=== PATIENT | male | born 1955 ===

== ENCOUNTER → 2021-01-21 11:03 | Outpatient (CLI) | payer MEDICARE, OTHER, SELFPAY ==
--- NOTE | 2021-01-21 | DI.US.S_ITS ---
PROCEDURE: US ABD AORTA ANEURYSM SCREEN INDICATIONS: HISTORY OF NICOTINE DEPENDENCE TECHNIQUE: Real time scanning was performed of the aorta and iliac arteries, with image documentation. COMPARISON: None. FINDINGS: Aorta: Proximal aortic diameter measures 2.7 cm. Mid-aorta measures 2.1 cm. Distal aortic diameter is 2 cm. Iliac arteries: Right common iliac artery measures 1.3 cm. Left common iliac artery measures 1.2 cm. IMPRESSION: Negative for aneurysm. Dictated by: Prieto Gil M.D. on 01/21/2021 at 12:27 Approved by: Prieto Gil M.D. on 01/21/2021 at 12:28
[2021-01-21 12:08] LABS: Add Manual Diff / Slide Review NO; Basophils Absolute Auto 100 /uL (0-100); Basophils Percent Auto 0.8 % (0-2); Eosinophils Absolute Auto 300 /uL (0-450); Eosinophils Percent Auto 4.2 % (2-4); Hematocrit 43.1 % (41-53); Hemoglobin 14.5 g/dL (13.5-17.5); Lymphocytes Absolute Auto 1700 /uL (1100-4500); Mean Corpuscular HGB Conc 33.7 % (30-36); Mean Corpuscular Hemoglobin 30.4 PG (26-34); Mean Corpuscular Volume 90.1 fL (80-100); Monocytes Absolute Auto 500 /uL (0-900); Monocytes Percent Auto 5.9 % (3-14); Neutrophils Absolute Auto 5200 /uL (1500-7000); Neutrophils Percent Auto 67.1 % (50-75); Platelet Count 172 X10^3/uL (150-400); Red Blood Cell Count 4.78 X10^6/uL (4.5-5.9); Red Cell Distribution Width 14.1 % (11.6-14.8); White Blood Cell Count 7.7 X10^3/uL (4.5-11.0)
[2021-01-21 12:17] LABS: Alanine Aminotransferase 28 IU/L (<50); Albumin 4.3 g/dL (3.5-5.0); Albumin Globulin Ratio 1.7 (1.0-2.8); Alkaline Phosphatase 68 U/L (38-126); Aspartate Aminotransferase 35 IU/L (17-59); BUN Creatinine Ratio 22.1 (6-22); Bilirubin Total 0.6 mg/dL (0.2-1.3); Blood Urea Nitrogen 17 mg/dL (9-20); Calcium 9.5 mg/dL (8.4-10.2); Carbon Dioxide 30 mmol/L (22-32); Chloride 104 mmol/L (98-107); Cholesterol 176 mg/dL (140-199); Estimated Glomerular Filt Rate > 60.0 mL/min (>60); Globulin 2.6 g/dL (1.7-4.1); Glucose 103 mg/dL (80-110); HDL Cholesterol 48 mg/dL (40-60); HEMOLYSIS < 15 (0-50); LDL Cholesterol Calculated 102 mg/dL (<100); Potassium 4.5 mmol/L (3.4-5.1); Sodium 141 mmol/L (137-145); Total Protein 6.9 g/dL (6.3-8.2); Triglycerides 131 mg/dL (35-150)
[2021-01-21 12:47] LABS: Prostate Specific Antigen Scrn 5.18 ng/mL (0.1-4.0)
== END ==
PROVIDERS: Referring Provider Family Medicine; Visit Provider Family Medicine
DX: Z13.0 Encounter for screening for diseases of the blood and blood-forming organs and certain disorders involving the immune mechanism (principal); Z13.6 Encounter for screening for cardiovascular disorders; Z13.220 Encounter for screening for lipoid disorders; Z87.891 Personal history of nicotine dependence; Z12.5 Encounter for screening for malignant neoplasm of prostate
CPT/HCPCS: 36415; 76706; 80053; 80061; 85025; G0103

== ENCOUNTER → 2021-05-06 13:40 | Outpatient (CLI) | payer MEDICARE, OTHER, SELFPAY ==
[2021-05-06 14:17] LABS: COVID19 -Nasal RAPID Negative (Negative)
== END ==
PROVIDERS: Visit Provider Family Medicine Sleep Medicine
DX: Z20.822 Contact with and (suspected) exposure to COVID-19 (principal)
CPT/HCPCS: 87635; C9803

== ENCOUNTER 2021-05-07 12:39 | Day surgery (SDC) | payer MEDICARE, OTHER, SELFPAY ==
--- NOTE | 2021-05-07 | PATH_ITS ---
[facility] Accession Number: [id number] . 01 Material submitted: . PART A: colon - SIGMOID COLON POLYP 8MM PART B: colon - SIGMOID COLON POLYP 1 CM . 02 Diagnosis: A. Sigmoid Colon Polyp 8 mm: Tubular adenoma. . B. Sigmoid Colon Polyp 1 cm: Tubular adenoma. MRV 05/11/2021 1424 Local . 02 Electronically signed: . Rachel Rolon MD, Pathologist NPI- [id number] . 01 Gross description: . Part A: SIGMOID COLON POLYP 8MM: Received in formalin is 1 fragment(s) of santiago, soft tissue measuring 0.4 x 0.3 x 0.2 cm submitted entirely in 1 cassette(s) Part B: SIGMOID COLON POLYP 1 CM: Received in formalin is 1 fragment(s) of santiago, soft tissue measuring 1.4 x 0.3 x 0.3 cm submitted entirely in 1 cassette(s) /[facility] 05/10/2021 1647 Local . 02 Pathologist provided ICD-10: Z12.11, K63.5 . 02 CPT . 616960, [id number] Specimen Comment: A courtesy copy of this report has been sent to [phone] Performed at: 01 [facility] [address] [facility], [place], [place] [id number] MD Christiano Aguilar MD Phone: [phone] Performed at: 02 [facility] [address] [place], [place] [id number] MD Eleanor Mccarthy MD Phone: [phone]
--- NOTE | 2021-05-07 12:19 | PM.HP.1 ---
History of Present Illness History of Present Illness Date Patient Seen: 05/07/21 Chief complaint: SDC Narrative: 65 year old male comes in today for consideration of a screening colonoscopy. One previous sigmoidoscopy and 1 previous colonoscopy, denies polyps. There have been no lower GI symptoms suggesting disease such as change in bowel habits, bleeding, abdominal pain or anemia. There's been no family history of colon cancer or colon polyps. Overall health issues have been stable, including no major cardiac events for at least 6 weeks. PCP: Dr. Thomas Past medical history: Obstructive sleep apnea BPH Trigger finger Arthritis Carpal tunnel syndrome History of tobacco use , quit 1987 Past surgical history: Knee arthroscopy, left Hernia repair Lipoma removal Bilateral rotator cuff repair Colonoscopy x1 Sigmoidoscopy x1 Family history: Noncontributory Social history: . 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 Lives on [place]. Recreational marijuana, no alcohol. Patient History Medical History Obstructive sleep apnea of adult Family & Social History Social History: household members spouse lives independently Yes caregiver/support person No Tobacco & Substance use: Smoking Status Former smoker alcohol intake current Meds Home Medications and Allergies Home Medications Medication Instructions Recorded Confirmed Type cholecalciferol (vitamin D3) PO DAILY 03/20/18 12/16/20 History loratadine 10 mg tablet (Claritin) 10 mg PO DAILY 03/20/18 05/07/21 History naproxen sodium 220 mg capsule 440 mg PO BID 03/20/18 05/07/21 History (Aleve) omega-3 fatty acids [Fish Oil PO DAILY 03/20/18 12/16/20 History Concentrate] Resmed Airsense 10 CPAP #1 ea 05/15/18 12/16/20 History tamsulosin 0.4 mg capsule 0.4 mg PO DAILY 05/07/21 05/07/21 History Allergies Allergy/AdvReac Type Severity Reaction Status Date / Time No Known Drug Allergies Allergy Verified 05/07/21 12:56 Review of Systems Review of Systems Narrative: All remaining ROS were reviewed and negative except as addressed. Exam Narrative Exam Narrative: GENERAL: Alert and oriented, appearing stated age and in no acute distress. HEENT: Head normocephalic/atraumatic. Extraocular movements intact. LUNGS: Clear to ausculation bilaterally, no wheezes, rhonchi or rales. CV: Normal S1 and S2 with regular rate and rhythm, no audible murmurs, rubs or gallops. ABDOMEN: Soft, non-tender, non-distended, no organomegaly. Positive bowel sounds. EXTREMITIES: No clubbing, cyanosis, or edema. NEURO: Cranial nerves II through XII grossly intact, no focal deficits. PSYCH: Alert and oriented x 3. SKIN: No concerning lesions. Assessment & Plan Assessment & Plan narrative: 1. Screening for colon cancer Plan for colonoscopy. The nature and character of the procedure as well as anticipated results were discussed. The possibility of not completing the procedure was also discussed. Possible complications including aspiration pneumonia, bleeding, perforation and reaction to medications either for sedation or preparation and missed lesions were discussed. Questions were answered and proceeding to the colonoscopy was elected. Informed consent signed. I sincerely appreciate the referral allowing me to participate in this patient's care. Please contact me with any questions or concerns.
--- NOTE | 2021-05-07 12:24 | PM.OP.COLON ---
Operative Date/Time/Diagnoses Date of procedure: 05/07/21 Procedure Notes SCOAP/Timeout: 1:52 p.m. Procedure in detail: ENDOSCOPIST: Li Morgan MD Sedation RN: Aarti Mata RN Sedation start time: 1:53 p.m. Sedation end time: 2:26 p.m. PROCEDURE: Colonoscopy INDICATIONS: 1. Screening for colon cancer MEDICATION: Levsin 0.125 mg sublingual, incremental doses of Versed and fentanyl until appropriate level sedation achieved. ASA CLASS: 2 CECAL WITHDRAWAL TIME: 27 minutes COMPLICATIONS: None. EXTENT OF PROCEDURE: Cecum. QUALITY OF PREP: Good with portions of liquid stool. PROCEDURE: Prior to insertion of the colonoscope, a digital rectal examination was accomplished with circumferential palpation of the distal rectal mucosa without significant findings being noted. The high-definition colonoscope was passed into the rectum in the usual fashion and advanced over to the cecum without difficulty. The ileocecal valve, appendiceal stoma, and medial wall all could be inspected and no abnormalities were seen. ASCENDING COLON: As the colonoscope was withdrawn, care was taken to expose and inspect the haustral folds and no abnormalities were seen. HEPATIC FLEXURE: Normal, no polyps, diverticula or other abnormalities. TRANSVERSE COLON: Normal, no polyps, diverticula or other abnormalities. DESCENDING COLON: Normal, no polyps, diverticula or other abnormalities. SIGMOID COLON: 2 polyps were seen, 8 mm polyp was removed with cold biopsy forceps in 2 bites. 1 cm polyp was seen, lifted with methylene blue and removed with cold snare. Hemoclip placed, excellent hemostasis noted. Otherwise, minor diverticulosis and no other abnormalities. RECTUM: Normal. J maneuver was produced. There was no significant perianal disease. The J maneuver was broken. The remainder of the rectum was inspected and there was no external hemorrhoid disease. The scope was withdrawn. IMPRESSION: 1. Sigmoid polyp x2, 8 mm removed with cold biopsy forceps. 1 cm polyp lifted with methylene blue and removed with cold snare. Hemoclip placed x1 with excellent hemostasis. 2. Sigmoid diverticulosis, minor PLAN: 1. Follow-up in clinic status post pathology results. The possibility of a missed lesion including a malignancy has been discussed with the patient previously. Potential alarm symptoms have been discussed and should be reported immediately.
[2021-05-07 13:00] VITALS: BP 140/89; PULSE 83; RESP 16; TEMP 36.3; O2SAT 96; BMI 33.2
[2021-05-07] MEDS: LACTATED RINGERS 1,000 ML 200 ML IV (13:13)
[2021-05-07] MEDS: HYOSCYAMINE 0.125 MG TABLET PO (13:14)
[2021-05-07] MEDS: fentaNYL 250 MCG/5 ML INJ IV (14:15)
[2021-05-07] MEDS: MIDAZOLAM 5 MG/5 ML VIAL IV (14:23)
[2021-05-07] MEDS: METHYLENE BLUE 50 MG/10 ML VIAL INJ (14:28)
[2021-05-07 14:30] VITALS: BP 137/83; PULSE 81; RESP 16; TEMP 36.8; O2SAT 96
[2021-05-07 14:35] VITALS: BP 132/83; PULSE 78; RESP 16; O2SAT 100
[2021-05-07 14:37] VITALS: BP 139/90; PULSE 75; RESP 16; O2SAT 96
[2021-05-07 14:42] VITALS: BP 145/75; PULSE 78; RESP 16; TEMP 36.8; O2SAT 96
== END 2021-05-07 14:59 | disposition home or self-care (01) ==
PROVIDERS: PCP Family Medicine; Referring Provider Student in an Organized Health Care Education/Training Program; Visit Provider Student in an Organized Health Care Education/Training Program
PROC: 0DJD8ZZ Inspection of Lower Intestinal Tract, Via Natural or Artificial Opening Endoscopic (ICD-10-PCS; CPT 45378; principal; 2021-05-07 13:45)
DX: Z12.11 Encounter for screening for malignant neoplasm of colon (principal); G47.33 Obstructive sleep apnea (adult) (pediatric); K57.30 Diverticulosis of large intestine without perforation or abscess without bleeding; D12.5 Benign neoplasm of sigmoid colon
CPT/HCPCS: 45385; 45380; 45381; J2250; J3010; Q9968

== ENCOUNTER → 2023-03-16 09:10 | Outpatient (CLI) | payer MEDICARE, OTHER, SELFPAY ==
--- NOTE | 2023-03-16 09:12 | DI.MRI.S_ITS ---
PROCEDURE: MR LUMBAR SPINE WO CON INDICATIONS: BILAT LEG WEAKNESS TECHNIQUE: Noncontrast sagittal T1 spin echo and T2 fast echo, sagittal STIR, and T2 fast spin echo through the lumbar spine. In cases with scoliosis, additional coronal T2 fast spin echo may be performed. COMPARISON: None. FINDINGS: Image quality: Excellent. Alignment and Curvature: There is normal bony alignment. Bone Marrow: Marrow is of normal overall signal. No acute vertebral body compression fractures. Spinal Cord: Conus medullaris terminates at the L1 level. Visualized cord demonstrates normal signal and size. Paraspinous Soft Tissues: No paravertebral masses. T12-L1: Normal appearance. L1-L2: Normal appearance. L2-L3: Mild disc desiccation. Broad-based disc bulge. Severe facet ligamentum flavum hypertrophy. No canal stenosis. No foraminal narrowing. L3-L4: Mild disc desiccation. Broad-based disc bulge. Severe facet ligamentum flavum hypertrophy. Severe canal stenosis. Moderate bilateral neural foraminal stenosis. L4-L5: Mild disc desiccation. Broad-based disc bulge. Severe facet ligamentum flavum hypertrophy. No canal stenosis. No foraminal stenosis. L5-S1: Normal appearance. IMPRESSION: 1. Multilevel mild disc desiccation, broad-based disc bulges and facet and ligamentum flavum hypertrophy with resultant severe canal stenosis at L3-4. 2. Moderate bilateral foraminal stenosis is present at L3-4 as well. Dictated by: Deena Wagner M.D. on 03/16/2023 at 12:26 Approved by: Deena Wagner M.D. on 03/16/2023 at 12:34
== END ==
LOC: MRI 09:11
PROVIDERS: PCP Family Medicine; Referring Provider Family Medicine; Visit Provider Family Medicine
DX: M51.36 Other intervertebral disc degeneration, lumbar region (principal); M48.061 Spinal stenosis, lumbar region without neurogenic claudication; M47.816 Spondylosis without myelopathy or radiculopathy, lumbar region; R29.898 Other symptoms and signs involving the musculoskeletal system
CPT/HCPCS: 72148

== ENCOUNTER → 2023-05-01 08:59 | Outpatient (CLI) | payer MEDICARE, OTHER, SELFPAY | PROVIDERS: PCP Family Medicine; Visit Provider Physician Assistant Surgical | DX: L02.222 Furuncle of back [any part, except buttock and flank] (principal) | CPT/HCPCS: 87070; 87075; 87205 ==

== ENCOUNTER → 2023-11-30 08:37 | Outpatient (CLI) | payer MEDICARE, OTHER, SELFPAY | LOC: LAB 08:40 | PROVIDERS: PCP Family Medicine; Referring Provider Family Medicine; Visit Provider Family Medicine | DX: G57.63 Lesion of plantar nerve, bilateral lower limbs (principal) | CPT/HCPCS: 36415 ==

== ENCOUNTER → 2024-10-29 08:08 | Outpatient (CLI) | payer MEDICARE, OTHER, SELFPAY ==
--- NOTE | 2024-10-29 08:10 | DI.RAD.S_ITS ---
PROCEDURE: XR CHEST 2V INDICATIONS: Chronic cough TECHNIQUE: 2 views of the chest were acquired. COMPARISON: None. FINDINGS: Surgical changes and devices: None. Lungs and pleura: No consolidation. There are prominent perihilar markings. No pleural effusions or pneumothorax. Mediastinum: Mediastinal contours are normal. Heart size is normal. Bones and chest wall: No suspicious bony abnormalities. Soft tissues appear unremarkable. IMPRESSION: Prominent perihilar markings. Nonspecific finding but could be seen in the setting of viral/atypical pneumonia or bronchitis. CT chest or high-resolution chest CT may be helpful for further evaluation. Dictated by: Artem Flores M.D. on 10/29/2024 at 8:49 Approved by: Artem Flores M.D. on 10/29/2024 at 8:50
== END ==
PROVIDERS: PCP Family Medicine; Referring Provider Family Medicine; Visit Provider Chiropractor
DX: R05.3 Chronic cough (principal); R06.09 Other forms of dyspnea; Z86.19 Personal history of other infectious and parasitic diseases
CPT/HCPCS: 71046